=== PATIENT | male | born 1970 | race African-American/Black ===

== ENCOUNTER 2022-12-08 08:34 | Emergency (ER) | payer OTHER ==
[2022-12-08] MEDS ORDERED: Ketorolac Tromethamine 60 MG/2 ML VIAL ONE (09:31)
== END 2022-12-08 09:50 | disposition home or self-care (01) ==
LOC: NAV ERS 08:34
DX: S13.4XXA Sprain of ligaments of cervical spine, initial encounter (principal); S39.012A Strain of muscle, fascia and tendon of lower back, initial encounter; K21.9 Gastro-esophageal reflux disease without esophagitis; Z79.899 Other long term (current) drug therapy; V43.92XA Unspecified car occupant injured in collision with other type car in traffic accident, initial encounter
CPT/HCPCS: 96372; 99283; J1885

== ENCOUNTER 2024-03-09 08:01 | Emergency (ER) | payer OTHER ==
[2024-03-09] MEDS ORDERED: Naproxen 500 MG TAB ONE (08:54)
== END 2024-03-09 09:20 | disposition home or self-care (01) ==
LOC: NAV ERS 08:01
DX: M77.8 Other enthesopathies, not elsewhere classified (principal); S82.52XD Displaced fracture of medial malleolus of left tibia, subsequent encounter for closed fracture with routine healing; R03.0 Elevated blood-pressure reading, without diagnosis of hypertension; K21.9 Gastro-esophageal reflux disease without esophagitis; Z79.899 Other long term (current) drug therapy; X50.1XXA Overexertion from prolonged static or awkward postures, initial encounter